=== PATIENT | female | born 1930 | race Caucasian/White ===

== ENCOUNTER → 2017-09-21 | Outpatient (CLI) | payer OTHER ==
[~2017-09-21] MED LIST: CARDIA; CARDIZEM CD180 MG; HYZAAR 100/25 T1 TAB; IRON325 ( 65 ); METFORMIN HCL1000 MG; NO SE ACUERDA; PLAVIX75 MG
== END | disposition home or self-care (01) ==
LOC: LAB 08:35
DX: K75.89 Other specified inflammatory liver diseases (principal); D68.8 Other specified coagulation defects